=== PATIENT | female | born 1940 | race Caucasian/White ===

== ENCOUNTER → 2019-01-17 12:35 | Outpatient (CLI) | payer OTHER, SELFPAY ==
--- NOTE | 2019-01-17 | DI.MG.S_ITS ---
BILATERAL DIGITAL SCREENING MAMMOGRAM 3D/2D WITH CAD: 01/17/2019 CLINICAL: Routine screening. Comparison is made to exams dated: 06/05/2015 mammogram, 11/15/2012 mammogram - [facility], and 11/13/2011 mammogram - [facility]. There are scattered fibroglandular elements in both breasts. Current study was also evaluated with a Computer Aided Detection (CAD) system. There are mole markers on both breasts. No significant masses, calcifications, or other findings are seen in either breast. There has been no significant interval change. IMPRESSION: NEGATIVE There is no mammographic evidence of malignancy. A 1 year screening mammogram is recommended. This exam was interpreted at Station ID: [id number]. NOTE: For mammograms, a report in lay terms will be sent to the patient. Approximately 15% of breast malignancies will not be visualized mammographically. In the management of a palpable breast mass, a negative mammogram must not discourage biopsy of a clinically suspicious lesion. Electronically Signed By: Nasir baum/quan:01/17/2019 19:21:47 letter sent: Normal Exam ACR BI-RADS Category 1: Negative 3341F
== END ==
PROVIDERS: PCP Family Medicine; Visit Provider Family Medicine
DX: Z12.31 Encounter for screening mammogram for malignant neoplasm of breast (principal)
CPT/HCPCS: 77063; 77067

== ENCOUNTER → 2021-01-15 11:18 | Outpatient (CLI) | payer OTHER, SELFPAY ==
--- NOTE | 2021-01-15 11:21 | DI.MG.S_ITS ---
BILATERAL DIGITAL SCREENING MAMMOGRAM 3D/2D WITH CAD: 01/15/2021 CLINICAL: Routine screening. Comparison is made to exams dated: 01/17/2019 mammogram, 06/05/2015 mammogram, and 11/15/2012 mammogram - [facility]. There are scattered fibroglandular elements in both breasts. Current study was also evaluated with a Computer Aided Detection (CAD) system. There are mole markers on both breasts. No significant masses, calcifications, or other findings are seen in either breast. There has been no significant interval change. IMPRESSION: NEGATIVE There is no mammographic evidence of malignancy. A 1 year screening mammogram is recommended. This exam was interpreted at Station ID: [id number]. NOTE: For mammograms, a report in lay terms will be sent to the patient. Approximately 15% of breast malignancies will not be visualized mammographically. In the management of a palpable breast mass, a negative mammogram must not discourage biopsy of a clinically suspicious lesion. Electronically Signed By: Camilo Thomas acr/penrad:01/15/2021 11:46:53 letter sent: Normal Exam ACR BI-RADS Category 1: Negative 3341F
== END ==
PROVIDERS: PCP Family Medicine; Referring Provider Family Medicine; Visit Provider Family Medicine
DX: Z12.31 Encounter for screening mammogram for malignant neoplasm of breast (principal)
CPT/HCPCS: 77063; 77067

== ENCOUNTER → 2021-01-25 14:36 | Outpatient (CLI) | payer OTHER, SELFPAY | PROVIDERS: PCP Family Medicine; Referring Provider Family Medicine; Visit Provider Family Medicine | DX: M85.852 Other specified disorders of bone density and structure, left thigh (principal) | CPT/HCPCS: 77080 ==

== ENCOUNTER → 2021-11-12 15:54 | Outpatient (CLI) | payer OTHER, SELFPAY ==
--- NOTE | 2021-11-12 | DI.MRI.S_ITS ---
PROCEDURE: MR KNEE LT WO CON INDICATIONS: Sprain of unspecified site of left knee TECHNIQUE: Noncontrast sagittal PD fast spin echo and T2 fast spin echo with fat saturation, sagittal 3-D FLASH with fat saturation; coronal T1 spin echo and PD fast spin echo with fat saturation, and axial PD fast spin echo with fat saturation through the knee. COMPARISON: None. FINDINGS: Image quality: Excellent. Menisci: The medial and lateral menisci demonstrate normal morphology and internal signal. The meniscal root ligaments appear intact. Cruciate ligaments: The anterior cruciate ligament is intact. Thickened distal PCL at its tibial insertion is seen. No full-thickness PCL rupture. Medial structures: Low to moderate grade MCL sprain/partial-thickness tear is seen. The posterior oblique ligament, semimembranosus tendon insertions, oblique popliteal ligament, and meniscocapsular junction appear intact. Visualized portions of the pes anserinus tendons appear normal. No abnormal bursal fluid. Lateral structures: The lateral collateral ligament, long and short heads of the biceps femoris tendon appear intact. The popliteus tendon appears normal; the popliteofibular ligament appears intact. The posterosuperior and anteroinferior popliteomeniscal fascicles appear intact. The arcuate and fabellofibular ligaments appear intact, on either side of the lateral inferior geniculate artery. Iliotibial band appears normal. Anterior structures: Distal quadriceps tendinosis at its superior patellar insertion is seen. Patellar tendon is intact.. Patellar alignment is normal. No femoral trochlear dysplasia or ventral trochlear prominence. No edema in the infrapatellar fat pad. Bones and cartilage: There is marrow edema involving posterior aspect of medial tibial plateau at distal PCL insertion site with cortical disruption suggestive of acute avulsion injury involving distal PCL insertion. No other area of abnormal marrow signal is seen. [id number] tricompartmental osteoarthritis and chondromalacia is noted. Joint space: There is small to moderate joint effusion. No Robles's cyst. Normal appearing synovial plicae are incidentally noted. IMPRESSION: 1. Finding is suggestive of acute to subacute avulsion injury involving posterior aspect of medial tibial plateau at distal PCL insertion. Sprain/low-grade partial-thickness tear involving distal PCL without full-thickness PCL rupture. ACL is intact. 2. No other area of abnormal marrow signal. Aohm-dj-[id number] tricompartmental osteoarthritis and low-grade chondromalacia. Small to moderate amount of joint fluid, no gross loose body. 3. Low to moderate grade MCL sprain/partial-thickness tear. 4. Distal quadriceps tendinosis at its superior patellar insertion. 5. No evidence of focal meniscal tear. Dictated by: Mitch Pearson M.D. on 11/12/2021 at 17:11 Approved by: Mitch Pearson M.D. on 11/12/2021 at 17:17
== END ==
PROVIDERS: PCP Family Medicine; Referring Provider Family Medicine; Visit Provider Family Medicine
DX: S83.522A Sprain of posterior cruciate ligament of left knee, initial encounter (principal); S83.412A Sprain of medial collateral ligament of left knee, initial encounter; M17.12 Unilateral primary osteoarthritis, left knee; M94.262 Chondromalacia, left knee
CPT/HCPCS: 73721

== ENCOUNTER 2023-03-13 23:33 | Emergency (ER) | payer OTHER, SELFPAY ==
[2023-03-13 23:38] VITALS: BP 189/90; PULSE 96; RESP 18; TEMP 36.3; O2SAT 98
--- NOTE | 2023-03-14 00:06 | ED.SKABFB ---
HPI - Skin/Abscess/Foreign Bdy General Chief complaint: Skin/Abscess/Foreign Body Stated complaint: Cellilitus left leg Time Seen by Provider: 03/13/23 23:51 Source: patient Mode of arrival: Ambulatory Limitations: no limitations History of Present Illness HPI narrative: Patient is an 82-year-old female who is on antibiotics for cellulitis to the anterior portion of her left leg. She is been on this for 3 days. She states she feels like things that improve but this evening she thought that maybe the redness was worsening. No fevers. She was told that if the redness extends larger than what was prior that she does need to be re-evaluated. Related Data Allergies Allergy/AdvReac Type Severity Reaction Status Date / Time Sulfa (Sulfonamide Allergy Severe NAUSEA/VOMI Unverified 01/27/18 12:05 Antibiotics) TING [SULFA (SULFONAMIDE ANTIBIOTICS)] Review of Systems Constitutional Constitutional: Reports system reviewed and no additional complaints, except as documented Musculoskeletal Musculoskeletal: Reports system reviewed and no additional complaints, except as documented Integumentary/Breasts Skin/Breast: Reports system reviewed and no additional complaints, except as documented Neurologic Neurologic: Reports system reviewed and no additional complaints, except as documented Hematologic/Lymphatic On Anticoagulants: No Patient History Social History Smoking Status: Never smoker Smoking Status: Never smoker Substance Use Type: does not use Exam Initial Vital Signs Initial Vital Signs: Vital Signs Temperature 97.3 F L 03/13/23 23:38 Pulse Rate 96 H 03/13/23 23:38 Respiratory Rate 18 03/13/23 23:38 Blood Pressure 189/90 H 03/13/23 23:38 Pulse Oximetry 98 03/13/23 23:38 Oxygen Delivery Method Room Air 03/13/23 23:38 Const General: cooperative, comfortable and No ill appearing HENMT Head: normal to inspection and normocephalic Resp Effort & Inspection: normal respiratory effort Auscultation: clear to auscultation bilaterally Cardio Rate: regular rate Rhythm: regular rhythm GI Inspection: normal to inspection Skin Other: Patient does have redness on the anterior portion of her left torres. There is no abscess. No fluctuance noted. Neuro General: patient alert, patient awake and moves all extremities Extrem General: normal to inspection and capillary refill normal Psych Appearance: grossly normal and well kempt Course Vital Signs Vital signs: Vital Signs - 8 hr 03/13/23 23:38 Temperature 97.3 F L Pulse Rate 96 H Respiratory Rate 18 Blood Pressure 189/90 H Pulse Oximetry 98 Oxygen Delivery Method Room Air MDM - Skin/Abscess/Foreign Bdy MDM Narrative Medical decision making narrative: There is some redness in the anterior portion of the left torres. There is no indication today that she needs to switch her antibiotics. I did outline the redness with a marker. Advised that she continue to take the antibiotics and if over the next 12-24 hours her symptoms worsen that she should return to the emergency department at that point she may need to change her antibiotics. She is nontoxic appearing. She expressed understanding agreement the plan. Discharge Plan Departure Patient Disposition: Home Clinical Impression: Cellulitis Instructions: DI for Cellulitis -- Adult Activity Restrictions/Additional Instructions: Recommend that you continue to take all of your medications as directed to include the antibiotics. You can shower like normal. If the redness starts to extend outside of the lines that were drawn this evening you do need to return to the emergency department for further evaluation like we discussed. Referrals: Helen Gonzalez MD [Primary Care Provider] - Stand Alone Forms: Patient Portal/API
== END 2023-03-14 00:11 | disposition home or self-care (01) ==
PROVIDERS: Emergency Provider Emergency Medicine; Family Provider Family Medicine; PCP Family Medicine
DX: L03.116 Cellulitis of left lower limb (principal)
CPT/HCPCS: 99281

== ENCOUNTER → 2023-08-11 12:52 | Outpatient (ROUT) | payer OTHER, SELFPAY ==
[2023-08-11 13:09] LABS: Add Manual Diff / Slide Review NO; Basophils Absolute Auto 0 /uL (0-100); Basophils Percent Auto 0.3 % (0-2); Eosinophils Absolute Auto 100 /uL (0-450); Hematocrit 45.1 % (36-46); Hemoglobin 15.1 g/dL (12.0-16.0); Lymphocytes Absolute Auto 1700 /uL (1100-4500); Mean Corpuscular HGB Conc 33.5 % (30-36); Mean Corpuscular Hemoglobin 28.8 PG (26-34); Mean Corpuscular Volume 86.1 fL (80-100); Monocytes Absolute Auto 500 /uL (0-900); Monocytes Percent Auto 7.6 % (3-14); Neutrophils Absolute Auto 4400 /uL (1500-7000); Neutrophils Percent Auto 65.1 % (50-75); Platelet Count 272 X10^3/uL (150-400); Red Blood Cell Count 5.24 X10^6/uL (4.0-5.2); Red Cell Distribution Width 14.5 % (11.6-14.8); White Blood Cell Count 6.7 X10^3/uL (4.5-11.0)
[2023-08-11 13:28] LABS: Alanine Aminotransferase 21 IU/L (<35); Albumin 4.3 g/dL (3.5-5.0); Albumin Globulin Ratio 1.7 (1.0-2.8); Alkaline Phosphatase 103 U/L (38-126); Aspartate Aminotransferase 31 IU/L (14-36); BUN Creatinine Ratio 23.9 (6-22); Bilirubin Total 0.5 mg/dL (0.2-1.3); Blood Urea Nitrogen 17 mg/dL (7-17); Calcium 9.5 mg/dL (8.4-10.2); Carbon Dioxide 27 mmol/L (22-32); Chloride 101 mmol/L (98-107); Cholesterol 316 mg/dL (140-199); Estimated Glomerular Filt Rate > 60 mL/min (>60); Globulin 2.6 g/dL (1.7-4.1); Glucose 130 mg/dL (80-110); HDL Cholesterol 55 mg/dL (40-60); HEMOLYSIS < 15 (0-50); LDL Cholesterol Calculated 220 mg/dL (<100); Magnesium 2.2 mg/dL (1.6-2.3); Potassium 4.6 mmol/L (3.4-5.1); Sodium 136 mmol/L (137-145); Total Protein 6.9 g/dL (6.3-8.2); Triglycerides 207 mg/dL (35-150)
[2023-08-11 13:32] LABS: Hemoglobin A1C% w Est Avg Glu 6.6 % (4.0-6.0)
[2023-08-11 13:59] LABS: Thyroid Stimulating Hormone 1.91 uIU/mL (0.47-4.68)
[2023-08-11 14:34] LABS: Vitamin B12 254 pg/mL (239-931)
[2023-08-14 18:36] LABS: ANA Screen, IFA Positive (.)
== END ==
PROVIDERS: Family Provider Family Medicine; PCP Family Medicine; Visit Provider Family Medicine
DX: E88.810 Metabolic syndrome (principal); R00.2 Palpitations; L65.9 Nonscarring hair loss, unspecified; M85.80 Other specified disorders of bone density and structure, unspecified site; K90.41 Non-celiac gluten sensitivity; M79.7 Fibromyalgia; R03.0 Elevated blood-pressure reading, without diagnosis of hypertension
CPT/HCPCS: 80053; 80061; 82306; 82607; 82746; 83036; 83735; 84443; 85025; 86038

== ENCOUNTER → 2025-01-27 15:33 | Outpatient (CLI) | payer OTHER, SELFPAY ==
--- NOTE | 2025-01-27 15:36 | DI.RAD.S_ITS ---
PROCEDURE: FL BARIUM SWALLOW INDICATIONS: BARIUM SWALLOW TEST COMPARISON: None. FINDINGS: Function: Spontaneous tertiary esophageal contractions are present in the mid and distal thoracic esophagus. Spontaneous esophageal reflux is present to the level of the aortic arch in the standing and supine positions. There is normal transit of a calibrated barium tablet through the esophagus into the stomach. Morphology: Air-contrast images demonstrate normal mucosal morphology. Single contrast views show no esophageal strictures, extrinsic mass effects, or diverticula. Limited images of the stomach demonstrate normal appearance. IMPRESSION: 1. Spontaneous esophageal reflux to the level of the aortic arch in the standing and supine positions, with associated tertiary esophageal contractions. 2. No significant hiatal hernia. Dictated by: Krishna Rutledge M.D. on 01/27/2025 at 16:54 Approved by: Krishna Rutledge M.D. on 01/27/2025 at 16:55
== END ==
PROVIDERS: Family Provider Family Medicine; PCP Family Medicine; Referring Provider Family Medicine; Visit Provider Radiology Diagnostic Radiology
DX: K21.9 Gastro-esophageal reflux disease without esophagitis (principal); R13.10 Dysphagia, unspecified
CPT/HCPCS: 74220

== ENCOUNTER 2025-02-02 08:54 | Emergency (ER) | payer OTHER, SELFPAY ==
--- NOTE | 2025-02-02 08:55 | EKG_ITS ---
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
[2025-02-02 08:59] VITALS: RESP 57
[2025-02-02 09:00] VITALS: BP 206/94; PULSE 80; PULSE 90; RESP 18; RESP 20; TEMP 36.8; O2SAT 99; BMI 25.1
--- NOTE | 2025-02-02 09:00 | DI.RAD.S_ITS ---
PROCEDURE: XR CHEST 1V INDICATIONS: chest pain TECHNIQUE: One view of the chest was acquired. COMPARISON: None. FINDINGS AND IMPRESSION: No dense consolidation or pleural effusion on this single view study. Normal heart size. Aortic calcifications. Degenerative osseous changes. Possible bony structure projects over the left lower neck, either artifact or cervical rib. Dictated by: Izaiah Parnell M.D. on 02/02/2025 at 9:41 Approved by: Izaiah Parnell M.D. on 02/02/2025 at 9:43
--- NOTE | 2025-02-02 09:00 | ED_ITS ---
HPI - Chest Pain General Chief Complaint: Chest Pain Stated Complaint: possible Heart Attack Time Seen by Provider: 02/02/25 08:55 History of Present Illness HPI narrative: 84-year-old female without any significant past medical history presents to the emergency department from home for evaluation of chest burning. States that she has been having sensations of chest burning for the past several months, states that she has seen her primary care doctor for this is in the process of seeing a land surveying manager, states that she has an appointment with a land surveying manager at the end of February. She states that the symptoms have been intermittent and ongoing for so long that she wanted to come into the ED to make sure everything was ?okay she was told that her symptoms might be due to her esophagus but has not seen a GI doctor. She states that nothing is making the symptoms better or worse. Patient denies any other symptoms such as headache visual disturbances shortness of breath fever chills nausea vomiting abdominal pain or any other GI/ symptoms at this time. She is not on any blood thinners. Related Data Previous Rx's Medication Instructions Recorded famotidine 20 mg tablet (Pepcid) 20 mg PO DAILY 1 month #30 tabs 02/02/25 Allergies Allergy/AdvReac Type Severity Reaction Status Date / Time Sulfa (Sulfonamide Allergy Severe NAUSEA/VOMI Verified 02/02/25 09:16 Antibiotics) TING [SULFA (SULFONAMIDE ANTIBIOTICS)] Review of Systems Review of Systems Narrative: General: Denies fever, chills, weight loss HEENT: Denies headache, eye drainage, eye irritation, head trauma, sore throat, voice change Cardiovascular: Positive chest pain, denies palpitations, tachycardia Respiratory: Denies any shortness of breath, cough, wheeze, stridor GI/: Denies any abdominal pain, nausea, vomiting, diarrhea, bright red blood per rectum, melanotic stools, urinary frequency, urinary retention, dysuria, hematuria MSK: Denies any joint pain, muscle pains, swelling Skin: Denies any rashes, lesions, discoloration Neuro: Denies any headache, lightheadedness, dizziness, fainting, weakness Psych: Denies SI/HI Patient History Social History Smoking Status: Never smoker Exam Narrative Exam Narrative: General: Cooperative, well-developed, not in acute distress HEENT: Normocephalic, atraumatic, PERRLA, normal sclera, eyelids normal Neck: Active full range of motion, atraumatic Chest: Normal to inspection, negative crepitus, no overlying erythema ecchymosis Respiratory: Normal respiratory effort, not in acute respiratory distress, clear to auscultation bilaterally negative cough, wheeze, tachypnea, rhonchi, rales Cardiology: Regular rate rhythm negative gallop, murmur, rubs GI/: No tenderness to palpation, soft, non rigid, normal to inspection, exam deferred MSK: Full active range of motion in all 4 extremities, atraumatic, no tenderness to palpation of any bony prominences Skin: No rashes or lesions noted Neuro: Alert awake oriented x3, moves all 4 extremities spontaneously, cranial nerves intact, able to answer all questions appropriately follows commands appropriately Psych: Cooperative, negative suicidal or homicidal ideations Initial Vital Signs Initial Vital Signs: Vital Signs Respiratory Rate 57 H 02/02/25 08:59 Course Orders Ordered: ED Orders 02/02/25 08:55 EKG-12 Lead Stat 02/02/25 09:00 XR chest 1V Stat 02/02/25 09:13 Complete Blood Count AUTO DIFF Stat Comprehensive Metabolic Panel Stat Lipase Stat MAG [Magnesium] Stat Troponin & CK Cardiac Panel Stat Discontinued Medications Al Hydrox/Mg Hydrox/Simethicone (Mag Hydrox/Alum/Simeth 30 Ml Udc) 30 ml PO NOW ONE Stop: 02/02/25 09:01 Last Admin: 02/02/25 09:16 Dose: 30 ml Documented By: RB Aspirin (Aspirin 81 Mg Chew Tab) 324 mg PO NOW ONE Stop: 02/02/25 09:01 Last Admin: 02/02/25 09:16 Dose: 324 mg Documented By: RB Famotidine (Famotidine 20 Mg/2 Ml Vial) 20 mg IV NOW ONE Stop: 02/02/25 09:01 Last Admin: 02/02/25 09:16 Dose: 20 mg Documented By: RB Vital Signs Vital signs: Vital Signs - 8 hr 02/02/25 08:59 02/02/25 09:00 02/02/25 09:00 Temperature 98.2 F Pulse Rate 80 Respiratory Rate 57 H 18 Blood Pressure 206/94 H 206/94 H Pulse Oximetry 99 Oxygen Delivery Method Room Air 02/02/25 09:00 Temperature Pulse Rate 90 Respiratory Rate 20 Blood Pressure Pulse Oximetry Oxygen Delivery Method MDM - Chest Pain Differential Diagnosis Differential diagnosis: Likely other (ACS, pneumonia, electrolyte abnormality, GERD) Lab Data 02/02/25 09:13 02/02/25 09:13 Labs: Lab Results 02/02/25 Range/Units 09:13 WBC 9.4 (4.5-11.0) X10^3/uL RBC 5.13 (4.0-5.2) X10^6/uL Hgb 15.2 (12.0-16.0) g/dL Hct 44.3 (36-46) % MCV 86.4 (80-100) fL MCH 29.6 (26-34) PG MCHC 34.3 (30-36) % RDW 14.3 (11.6-14.8) % Plt Count 252 (150-400) X10^3/uL Neut % (Auto) 74.5 (50-75) % Lymph % (Auto) 16.7 L (25-40) % Hamilton % (Auto) 7.2 (3-14) % Eos % (Auto) 1.2 L (2-4) % Baso % (Auto) 0.4 (0-2) % Neut # (Auto) 7000 (4870-2526) /uL Lymph # (Auto) 1600 (9946-0358) /uL Hamilton # (Auto) 700 (0-900) /uL Eos # (Auto) 100 (0-450) /uL Baso # (Auto) 0 (0-100) /uL Sodium 139 (137-145) mmol/L Potassium 4.0 (3.4-5.1) mmol/L Chloride 104 (98-107) mmol/L Carbon Dioxide 27 (22-32) mmol/L BUN 20 H (7-17) mg/dL Creatinine 0.82 (0.52-1.04) mg/dL Estimated GFR > 60 (>60) mL/min BUN/Creatinine Ratio 24.4 H (6-22) Glucose 135 H (80-110) mg/dL Calcium 9.4 (8.4-10.2) mg/dL Magnesium 2.0 (1.6-2.3) mg/dL Total Bilirubin 0.7 (0.2-1.3) mg/dL AST 32 (14-36) IU/L ALT 22 (<35) IU/L Alkaline Phosphatase 77 (38-126) U/L Total Creatine Kinase 34 (30-135) U/L Troponin I < 0.012 (0.01-0.034) ng/mL Total Protein 7.1 (6.3-8.2) g/dL Albumin 4.4 (3.5-5.0) g/dL Globulin 2.7 (1.7-4.1) g/dL Albumin/Globulin Ratio 1.6 (1.0-2.8) Lipase 115 (23-300) U/L Imaging Data Chest x-ray: Radiologist's Impression: [address] [address] XRay Report Signed Patient: Kathe Szymanski MR#: [id number] : 1940 Acct:[id number] Age/Sex: 84 / F Date of Service: 02/02/25 Loc: ED Accession Number: [id number] Procedure: XR chest 1V Ordering Provider: Richi Espinal D.O. PROCEDURE: XR CHEST 1V INDICATIONS: chest pain TECHNIQUE: One view of the chest was acquired. COMPARISON: None. FINDINGS AND IMPRESSION: No dense consolidation or pleural effusion on this single view study. Normal heart size. Aortic calcifications. Degenerative osseous changes. Possible bony structure projects over the left lower neck, either artifact or cervical rib. ECG Data Interpretation: EKG interpreted ED physician sinus 77 beats per minute QTC [address] changes no STEMI MDM Narrative Medical decision making narrative: 84-year-old female no significant past medical history presenting for chest burning sensation, states it has been ongoing intermittent for the past several months, states that she is in the process of seeing a land surveying manager has not appointment at the end of February of 2025. She states that she has seen her primary care doctor multiple times for this has had normal EKGs and was told that it might be due to her esophagus, however she states that she does not take any medications for this. She states that given the persistent and intermittent symptoms wanted to be evaluated in the emergency department. Patient had lab work, chest x-ray, EKG performed here in the emergency department. Patient had Pepcid, Maalox and aspirin provided here in the emergency department. EKG was nonischemic in nature. Patient without any leukocytosis, Chem panel unremarkable, troponin negative, chest x-ray without any acute cardiopulmonary abnormality, patient had improved/completely resolved symptoms after administration of Pepcid, Maalox, patient with a heart score of 2. Patient will be discharged home with Pepcid for symptomatic control of her symptoms. Patient will be discharged home and instructed to follow up with her land surveying manager, as well as primary care doctor, she was given strict return precautions she verbalized understanding of this and agrees to being discharged home with outpatient follow up Discharge Plan Departure Patient Disposition: Home Clinical Impression: Chest pain Instructions: DI for Chest Pain Activity Restrictions/Additional Instructions: Please follow up with Cardiology and primary care Please read the discharge instructions sheet carefully and bring all papers to all doctor follow-up visits, as it may contain information that your doctor may want to see. Disease processes change and evolve, if your symptoms worsen or if you develop any new symptoms that are concerning to you please return for evaluation. Your evaluation today does not show any evidence of any life- threatening/serious illnesses requiring admission to the hospital or surgery. Please follow-up with your doctor for re-evaluation in approximately 1 day. Seek immediate medical attention for any worrisome symptoms. *If you do not have a primary care provider please contact the [facility] Resource line at [phone]. They will ask some questions about your medical history and help get you set up with a doctor in the community. Prescriptions: New famotidine [Pepcid] 20 mg tablet 20 mg PO DAILY 30 Days Qty: 30 0RF Referrals: Helen Gonzalez MD [Primary Care Provider] - Stand Alone Forms: Patient Portal/API/Survey
[2025-02-02] MEDS: FAMOTIDINE 20 MG/2 ML VIAL IV (09:16)
[2025-02-02] MEDS: ASPIRIN 81 MG CHEW TAB 324 MG PO (09:16)
[2025-02-02] MEDS: MAG HYDROX/ALUM/SIMETH 30 ML UDC PO (09:16)
[2025-02-02 09:19] LABS: Add Manual Diff / Slide Review NO; Basophils Absolute Auto 0 /uL (0-100); Basophils Percent Auto 0.4 % (0-2); Eosinophils Absolute Auto 100 /uL (0-450); Eosinophils Percent Auto 1.2 % (2-4); Hematocrit 44.3 % (36-46); Hemoglobin 15.2 g/dL (12.0-16.0); Lymphocytes Absolute Auto 1600 /uL (1100-4500); Lymphocytes Percent Auto 16.7 % (25-40); Mean Corpuscular HGB Conc 34.3 % (30-36); Mean Corpuscular Hemoglobin 29.6 PG (26-34); Mean Corpuscular Volume 86.4 fL (80-100); Monocytes Absolute Auto 700 /uL (0-900); Monocytes Percent Auto 7.2 % (3-14); Neutrophils Absolute Auto 7000 /uL (1500-7000); Neutrophils Percent Auto 74.5 % (50-75); Platelet Count 252 X10^3/uL (150-400); Red Blood Cell Count 5.13 X10^6/uL (4.0-5.2); Red Cell Distribution Width 14.3 % (11.6-14.8); White Blood Cell Count 9.4 X10^3/uL (4.5-11.0)
[2025-02-02 09:30] VITALS: PULSE 72; RESP 23; O2SAT 99
[2025-02-02 09:30] LABS: Alanine Aminotransferase 22 IU/L (<35); Albumin 4.4 g/dL (3.5-5.0); Albumin Globulin Ratio 1.6 (1.0-2.8); Alkaline Phosphatase 77 U/L (38-126); Aspartate Aminotransferase 32 IU/L (14-36); BUN Creatinine Ratio 24.4 (6-22); Bilirubin Total 0.7 mg/dL (0.2-1.3); Blood Urea Nitrogen 20 mg/dL (7-17); Calcium 9.4 mg/dL (8.4-10.2); Carbon Dioxide 27 mmol/L (22-32); Chloride 104 mmol/L (98-107); Creatine Kinase 34 U/L (30-135); Estimated Glomerular Filt Rate > 60 mL/min (>60); Globulin 2.7 g/dL (1.7-4.1); Glucose 135 mg/dL (80-110); HEMOLYSIS < 15 (0-50); Lipase 115 U/L (23-300); Sodium 139 mmol/L (137-145); Total Protein 7.1 g/dL (6.3-8.2)
[2025-02-02 09:31] VITALS: BP 151/67; PULSE 71; RESP 22; O2SAT 100
[2025-02-02 09:42] LABS: Troponin I < 0.012 ng/mL (0.01-0.034)
== END 2025-02-02 10:02 | disposition home or self-care (01) ==
PROVIDERS: Emergency Provider Student in an Organized Health Care Education/Training Program; Family Provider Family Medicine; PCP Family Medicine
DX: R07.9 Chest pain, unspecified (principal)
CPT/HCPCS: 36415; 71045; 80053; 82550; 83690; 83735; 84484; 85025; 93005; 93010; 96374; 99284

== ENCOUNTER 2025-02-03 09:43 | Emergency (ER) | payer OTHER, SELFPAY ==
[2025-02-03] VITALS (15 sets, daily range): BP systolic 133–194; BP diastolic 63–92; PULSE 70–93; RESP 12–30; TEMP 36.3; O2SAT 94–99; BMI 25.0
--- NOTE | 2025-02-03 09:46 | DI.RAD.S_ITS ---
PROCEDURE: XR CHEST 1V INDICATIONS: chest pain TECHNIQUE: One view of the chest was acquired. COMPARISON: [facility], CR, XR CHEST 1V, 02/02/2025, 9:11. FINDINGS: Surgical changes and devices: None. Lungs and pleura: Lungs are clear. No pleural effusions or pneumothorax. Mediastinum: Mildly tortuous thoracic aorta with aortic arch calcifications. Heart size is enlarged. Bones and chest wall: No suspicious bony lesions. Overlying soft tissues appear unremarkable. IMPRESSION: No acute cardiopulmonary pathology. Dictated by: Mitch Pearson M.D. on 02/03/2025 at 10:05 Approved by: Mitch Pearson M.D. on 02/03/2025 at 10:06
--- NOTE | 2025-02-03 09:58 | EKG_ITS ---
[address] [address] Test Date: 2025-02-03 Pat Name: Kathe Szymanski Department: [facility] Room: Gender: Female [employer] Hunter: NATASHA : 1940 Requested By: Order Number: [id number] Reading MD: Ej Farr MD Measurements Intervals [place] Rate: 75 P: 75 MN: 146 QRS: -1 QRSD: 88 T: 36 QT: 364 QTc: 406 Interpretive Statements Normal sinus rhythm with sinus arrhythmia Electronically Signed On 02-03-2025 10:46:08 PDT by Ej Farr MD
--- NOTE | 2025-02-03 10:10 | PC.NURSE ---
Pt transferred to [facility]. Appears in NAD. Denies pain at this time.
[2025-02-03 10:13] LABS: Add Manual Diff / Slide Review NO; Basophils Absolute Auto 0 /uL (0-100); Basophils Percent Auto 0.4 % (0-2); Eosinophils Absolute Auto 100 /uL (0-450); Eosinophils Percent Auto 0.8 % (2-4); Hematocrit 43.4 % (36-46); Hemoglobin 14.9 g/dL (12.0-16.0); Lymphocytes Absolute Auto 1000 /uL (1100-4500); Lymphocytes Percent Auto 9.5 % (25-40); Mean Corpuscular HGB Conc 34.3 % (30-36); Mean Corpuscular Hemoglobin 29.5 PG (26-34); Mean Corpuscular Volume 85.9 fL (80-100); Monocytes Absolute Auto 600 /uL (0-900); Monocytes Percent Auto 5.8 % (3-14); Neutrophils Absolute Auto 8400 /uL (1500-7000); Neutrophils Percent Auto 83.5 % (50-75); Platelet Count 241 X10^3/uL (150-400); Red Blood Cell Count 5.05 X10^6/uL (4.0-5.2); Red Cell Distribution Width 14.3 % (11.6-14.8); White Blood Cell Count 10.1 X10^3/uL (4.5-11.0)
--- NOTE | 2025-02-03 10:20 | ED_ITS ---
HPI - Chest Pain General Chief Complaint: Chest Pain Stated Complaint: Chest pain; EMS called but rec to come to ER Time Seen by Provider: 02/03/25 10:06 Source: patient Mode of arrival: Family Vehicle Limitations: no limitations History of Present Illness HPI narrative: Patient here with a real estate representative for complaints of right-sided chest pain radiating to the right neck and right arm. Patient seen here yesterday for the same. Did have relief with GI cocktail yesterday but not relieved today at home with it. Currently chest pain-free. Patient is scheduled for cardiology office visit in February. Also working on referral to GI by a primary care for possible stomach or esophagus problem. Patient does have history of diabetes. Patient has never had a cardiac workup in the past stress test echocardiogram. Related Data Previous Rx's Medication Instructions Recorded famotidine 20 mg tablet (Pepcid) 20 mg PO DAILY 1 month #30 tabs 02/02/25 Allergies Allergy/AdvReac Type Severity Reaction Status Date / Time Sulfa (Sulfonamide Allergy Severe NAUSEA/VOMI Verified 02/03/25 09:53 Antibiotics) TING [SULFA (SULFONAMIDE ANTIBIOTICS)] Review of Systems Review of Systems Narrative: GENERAL: Negative chills, fatigue, malaise, fever, sweats. HEENT: Negative sinus pain, ear pain, sore throat RESPIRATORY: Negative dyspnea, cough CARDIOVASCULAR: Positive chest pain, negative palpitations GASTROINTESTINAL: Negative vomiting, nausea, abdominal pain : Negative dysuria, frequency, hematuria MUSCULOSKELETAL: Negative muscle or bony pain SKIN: Negative rash, skin lesions NEUROLOGIC: Negative weakness, numbness ROS Unobtainable: All systems reviewed & are unremarkable except as noted in HPI and below Patient History Social History Smoking Status: Never smoker Smoking Status: Never smoker Exam Narrative Exam Narrative: GENERAL: in no distress, not toxic not dyspneic HEAD: Normocephalic. EYES: Pupils equal round ENT: Mucous membranes moist. NECK: Trachea midline. CARDIOVASCULAR: Regular rate and rhythm RESPIRATORY: Clear to auscultation. Breath sounds equal bilaterally. No wheezes, rales, or rhonchi. GASTROINTESTINAL: Abdomen soft, non-tender EXTREMITIES: No gross deformities. BACK: No flank tenderness. NEURO: AOx4. Clear speech SKIN: Warm and dry PSYCH: Not anxious, is cooperative Initial Vital Signs Initial Vital Signs: Vital Signs Temperature 97.4 F L 02/03/25 09:49 Pulse Rate 92 H 02/03/25 09:49 Respiratory Rate 14 02/03/25 09:49 Blood Pressure 179/85 H 02/03/25 09:49 Pulse Oximetry 98 02/03/25 09:49 Oxygen Delivery Method Room Air 02/03/25 09:49 Scores HEART Score Heart Score history: Moderately Suspicious Heart Score EKG: Normal Heart Score Age: > or = 65 years old Heart Score risk factors: 1-2 risk factors Heart Score troponin: < or = to normal limit Heart Score Total: 4 Course Orders Ordered: Discontinued Medications Aspirin (Aspirin 81 Mg Chew Tab) 324 mg PO NOW ONE Stop: 02/03/25 09:47 Last Admin: 02/03/25 09:56 Dose: Not Given Documented By: LISHA Atorvastatin Calcium (Atorvastatin 20 Mg Tablet) 40 mg PO NOW ONE Stop: 02/03/25 12:44 Last Admin: 02/03/25 13:30 Dose: 40 mg Documented By: Heparin Sodium (Porcine) (Heparin 5,000 Unit/Ml Vial) 4,000 unit 60 unit/kg (4000 unit) IV NOW ONE Stop: 02/03/25 12:20 Last Admin: 02/03/25 12:29 Dose: 4,000 unit Documented By: Heparin Sodium/Dextrose (Heparin Drip) 25,000 unit in 500 mls @ 16.874 mls/hr IV CONT SHRUTHI; Protocol Last Admin: 02/03/25 12:30 Dose: 12 units/kg/hr, 16.874 mls/hr Documented By: Co-signed By: LISHA Morphine Sulfate (Morphine 4 Mg/Ml Inj) 4 mg IV NOW ONE Stop: 02/03/25 13:42 Last Admin: 02/03/25 13:44 Dose: 4 mg Documented By: Nitroglycerin (Nitroglycerin Oint 1 Inch/Gm Oint...G.) 1 inch TOP NOW ONE Stop: 02/03/25 13:42 Last Admin: 02/03/25 13:45 Dose: 1 inch Documented By: Ondansetron HCl (Ondansetron 4 Mg/2 Ml Inj) 4 mg IV NOW ONE Stop: 02/03/25 13:42 Last Admin: 02/03/25 13:45 Dose: 4 mg Documented By: Vital Signs Vital signs: Vital Signs - 8 hr 02/03/25 09:49 02/03/25 10:00 02/03/25 10:01 Temperature 97.4 F L Pulse Rate 92 H 79 80 Respiratory Rate 14 19 20 Blood Pressure 179/85 H Pulse Oximetry 98 95 95 Oxygen Delivery Method Room Air 02/03/25 10:01 02/03/25 10:30 02/03/25 10:30 Temperature Pulse Rate 76 78 Respiratory Rate 12 16 Blood Pressure 157/72 H 148/67 H Pulse Oximetry 94 98 Oxygen Delivery Method Room Air 02/03/25 10:41 02/03/25 10:41 02/03/25 11:00 Temperature Pulse Rate 73 72 Respiratory Rate 12 17 Blood Pressure 144/63 H Pulse Oximetry 95 95 Oxygen Delivery Method Room Air 02/03/25 11:00 02/03/25 11:30 02/03/25 11:30 Temperature Pulse Rate 70 Respiratory Rate 15 Blood Pressure 138/64 133/63 Pulse Oximetry 96 Oxygen Delivery Method 02/03/25 12:00 02/03/25 12:00 02/03/25 12:30 Temperature Pulse Rate 70 83 Respiratory Rate 12 16 Blood Pressure 136/65 Pulse Oximetry 97 98 Oxygen Delivery Method 02/03/25 12:31 02/03/25 12:31 02/03/25 13:00 Temperature Pulse Rate 78 89 Respiratory Rate 16 16 Blood Pressure 177/78 H Pulse Oximetry 98 97 Oxygen Delivery Method 02/03/25 13:01 02/03/25 13:01 02/03/25 13:30 Temperature Pulse Rate 88 90 Respiratory Rate 21 30 H Blood Pressure 143/71 H Pulse Oximetry 97 99 Oxygen Delivery Method 02/03/25 13:31 02/03/25 13:31 Temperature Pulse Rate 93 H Respiratory Rate 28 H Blood Pressure 194/92 H Pulse Oximetry 99 Oxygen Delivery Method MDM - Chest Pain Lab Data 02/03/25 10:05 02/03/25 10:05 Labs: Lab Results 02/03/25 02/03/25 Range/Units 10:05 12:20 WBC 10.1 (4.5-11.0) X10^3/uL RBC 5.05 (4.0-5.2) X10^6/uL Hgb 14.9 (12.0-16.0) g/dL Hct 43.4 (36-46) % MCV 85.9 (80-100) fL MCH 29.5 (26-34) PG MCHC 34.3 (30-36) % RDW 14.3 (11.6-14.8) % Plt Count 241 (150-400) X10^3/uL Neut % (Auto) 83.5 H (50-75) % Lymph % (Auto) 9.5 L (25-40) % Baker % (Auto) 5.8 (3-14) % Eos % (Auto) 0.8 L (2-4) % Baso % (Auto) 0.4 (0-2) % Neut # (Auto) 8400 H (6689-7065) /uL Lymph # (Auto) 1000 L (4619-4851) /uL Baker # (Auto) 600 (0-900) /uL Eos # (Auto) 100 (0-450) /uL Baso # (Auto) 0 (0-100) /uL PT 12.0 (9.4-12.5) SECONDS INR 1.1 (0.9-1.3) APTT 36 (25.1-36.5) SECONDS Sodium 137 (137-145) mmol/L Potassium 4.2 (3.4-5.1) mmol/L Chloride 104 (98-107) mmol/L Carbon Dioxide 26 (22-32) mmol/L BUN 18 H (7-17) mg/dL Creatinine 0.79 (0.52-1.04) mg/dL Estimated GFR > 60 (>60) mL/min BUN/Creatinine Ratio 22.8 H (6-22) Glucose 183 H (80-110) mg/dL Calcium 9.4 (8.4-10.2) mg/dL Magnesium 2.0 (1.6-2.3) mg/dL Total Bilirubin 0.8 (0.2-1.3) mg/dL AST 32 (14-36) IU/L ALT 19 (<35) IU/L Alkaline Phosphatase 85 (38-126) U/L Total Creatine Kinase 38 43 (30-135) U/L Troponin I 0.081 H 0.199 H* (0.01-0.034) ng/mL NT-Pro-B Natriuret Pep 561 H (<450) pg/mL Total Protein 7.0 (6.3-8.2) g/dL Albumin 4.3 (3.5-5.0) g/dL Globulin 2.7 (1.7-4.1) g/dL Albumin/Globulin Ratio 1.6 (1.0-2.8) Lipase 96 (23-300) U/L Imaging Data Chest x-ray: Radiologist's Impression: [address] [address] XRay Report Signed Patient: Kathe Szymanski MR#: [id number] : 1940 Acct:[id number] Age/Sex: 84 / F Date of Service: 02/03/25 Loc: ED Accession Number: [id number] Procedure: XR chest 1V Ordering Provider: Venkatesh Walker MD PROCEDURE: XR CHEST 1V INDICATIONS: chest pain TECHNIQUE: One view of the chest was acquired. COMPARISON: [facility], , XR CHEST 1V, 02/02/2025, 9:11. FINDINGS: Surgical changes and devices: None. Lungs and pleura: Lungs are clear. No pleural effusions or pneumothorax. Mediastinum: Mildly tortuous thoracic aorta with aortic arch calcifications. Heart size is enlarged. Bones and chest wall: No suspicious bony lesions. Overlying soft tissues appear unremarkable. IMPRESSION: No acute cardiopulmonary pathology. Dictated by: Mitch Pearson M.D. on 02/03/2025 at 10:05 Approved by: Mitch Pearson M.D. on 02/03/2025 at 10:06 [facility] Narrative Medical decision making narrative: Patient here with a real estate representative for complaints of right-sided chest pain radiating to the right neck and right arm. Patient seen here yesterday for the same. Did have relief with GI cocktail yesterday but not relieved today at home with it. Currently chest pain-free. Patient is scheduled for cardiology office visit in February. Also working on referral to GI by a primary care for possible stomach or esophagus problem. Patient does have history of diabetes. Patient has never had a cardiac workup in the past stress test echocardiogram After history and exam, patient already had aspirin by EMS at home. CBC CMP troponin EKG chest x-ray, likely transfer, patient aware we do not have stress test capability this weekend. [facility] Medical records reviewed: ER visit here yesterday Differential considered: Includes but not limited to STEMI non-STEMI stable angina unstable angina Lab Test results independently reviewed as above. Pertinent findings: Hemoglobin 14.9 hematocrit 43.4 INR 1.1 BUN 18 creatinine 0.79 GFR greater than 60, troponin 0.081, repeat troponin 0.199 Independently reviewed EKG normal sinus rhythm rate [address] elevation or depression Imaging studies independently reviewed: Chest x-ray no acute finding Consultations: 12:44 p.m.. Spoke with Ashley babin hospitalist Dr. Pineda, she will accept patient. Re-evaluations: 12:22 p.m.. Updated patient and friend results. Will need transfer for non-STEMI. Currently chest pain-free. She does understand. May need heart catheterization. 1:30 p.m.. Patient has chest pain that came back. Repeat EKG has artifact with rate of 91. Morphine Zofran and nitro paste ordered. 2:00 p.m.. EMS is here to transfer patient. Patient is smiling and feeling much better. 1/10 pain. Discussion: Appropriate for transfer for higher level of care and stress test. This is patient's 2nd visit in 2 days for chest pain. Patient does agree for transfer and need for more urgent stress test. Heparin has been started. Diagnosis: Non-STEMI Critical Care Time Critical Care Time Attestation: Critical Care Time 35 minutes: Critical care time is separate from other billable procedures. This critical care time includes consultation with family and other consulting doctors, review of records, and interpretation of data from labs, EKGs, imaging, etc. Discharge Plan Departure Patient Disposition: Xfer Acute [facility] Clinical Impression: Non-STEMI (non-ST elevated myocardial infarction) Prescriptions: No Action famotidine [Pepcid] 20 mg tablet 20 mg PO DAILY 30 Days Qty: 30 0RF Referrals: Helen Gonzalez MD [Primary Care Provider] -
[2025-02-03 10:23] LABS: INR 1.1 (0.9-1.3)
[2025-02-03 10:25] LABS: PTT Partial Thromboplastin Tim 36 SECONDS (25.1-36.5)
[2025-02-03 10:26] LABS: Alanine Aminotransferase 19 IU/L (<35); Albumin 4.3 g/dL (3.5-5.0); Albumin Globulin Ratio 1.6 (1.0-2.8); Alkaline Phosphatase 85 U/L (38-126); Aspartate Aminotransferase 32 IU/L (14-36); BUN Creatinine Ratio 22.8 (6-22); Bilirubin Total 0.8 mg/dL (0.2-1.3); Blood Urea Nitrogen 18 mg/dL (7-17); Calcium 9.4 mg/dL (8.4-10.2); Carbon Dioxide 26 mmol/L (22-32); Chloride 104 mmol/L (98-107); Creatine Kinase 38 U/L (30-135); Estimated Glomerular Filt Rate > 60 mL/min (>60); Globulin 2.7 g/dL (1.7-4.1); Glucose 183 mg/dL (80-110); HEMOLYSIS < 15 (0-50); Lipase 96 U/L (23-300); Potassium 4.2 mmol/L (3.4-5.1); Sodium 137 mmol/L (137-145)
[2025-02-03 10:38] LABS: NT-proBNP (BNP-Adult 18+) 561 pg/mL (<450); Troponin I 0.081 ng/mL (0.01-0.034)
[2025-02-03] MEDS: HEPARIN 5,000 UNIT/ML VIAL 4000 UNIT IV (12:29)
[2025-02-03] MEDS: HEPARIN DRIP 25,000 UNIT/500 ML IV.SOLN 16.874 UNIT IV (12:30)
[2025-02-03 13:00] LABS: Creatine Kinase 43 U/L (30-135)
[2025-02-03] MEDS: ATORVASTATIN 20 MG TABLET 40 MG PO (13:30)
--- NOTE | 2025-02-03 13:35 | PC.NURSE ---
Pt reports chest pain. Dr Walker notiifed. EKG done.
--- NOTE | 2025-02-03 13:37 | EKG_ITS ---
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
--- NOTE | 2025-02-03 13:40 | PC.NURSE ---
[employer] Note: Transfer to started at 1116. Accepted by Dr. Boucher at 1244. [facility] ETA 1340. called and given ETA.
--- NOTE | 2025-02-03 13:41 | PC.NURSE ---
Pt reports that she is having a lot of substernal check pain with burning radiation to left arm.
[2025-02-03] MEDS: MORPHINE 4 MG/ML INJ IV (13:44)
[2025-02-03] MEDS: NITROGLYCERIN OINT 1 INCH/GM OINT...G. TOP (13:45)
[2025-02-03] MEDS: ONDANSETRON 4 MG/2 ML INJ IV (13:45)
[2025-02-03 13:50] LABS: Troponin I 0.199 ng/mL (0.01-0.034)
--- NOTE | 2025-02-03 13:58 | PC.NURSE ---
Reported to ambulance crew for transport to . Pt reports pain has decreased to 1 or 2 with no radiation to arm.
== END 2025-02-03 14:03 | disposition short-term general hospital (02) ==
PROVIDERS: Emergency Provider Emergency Medicine; Family Provider Family Medicine; PCP Family Medicine; Referring Provider Family Medicine
DX: I21.4 Non-ST elevation (NSTEMI) myocardial infarction (principal)
CPT/HCPCS: 36415; 71045; 80053; 82550; 83690; 83735; 83880; 84484; 85025; 85610; 85730; 93005; 93010; 96365; 96366; 96375; 99284; 99291; J1644; J2270; J2405

== ENCOUNTER → 2025-03-21 07:37 | Outpatient (CLI) | payer OTHER, SELFPAY ==
[2025-03-21 08:27] LABS: HDL Cholesterol 48 mg/dL (40-60); Triglycerides 141 mg/dL (35-150)
[2025-03-21 08:28] LABS: Cholesterol 150 mg/dL (140-199); LDL Cholesterol Calculated 74 mg/dL (<100)
== END ==
PROVIDERS: Family Provider Family Medicine; PCP Family Medicine; Referring Provider Internal Medicine; Visit Provider Internal Medicine
DX: E78.5 Hyperlipidemia, unspecified (principal)
CPT/HCPCS: 36415; 80061

== ENCOUNTER → 2025-05-18 12:30 | Outpatient (CLI) | payer OTHER, SELFPAY ==
--- NOTE | 2025-05-18 12:31 | DI.ECHO.S_ITS ---
[place] [facility]+ [facility] : : [address] : : [place] : : [id number] : : Phone: [phone] Echocardiogram Report + + :Name: DREAD ANDREWS Study Date: 05/18/2025 Height: 66 in : :[facility] ReadingLocation: Weight: 147 lb : : Gender: Female BSA: 1.8 m2 : :: 1940 Age: 84 yrs BP: 136/85 mmHg: :Reason For Study: HEART FAILURE : :Ordering Physician: MAYCO PEARSON Performed By: Filipe Johnson : :Referring: MAYCO PEARSON : + + Interpretation Summary 1. The left ventricular contractility is normal. Estimated ejection fraction is greater than 60% with no segmental wall motion abnormalities. No LVH. Normal diastolic function. 2. The right ventricular contractility is normal. 3. All cardiac chambers are of normal size. 4. Mild aortic insufficiency. 5. No obvious intracardiac shunts. 6. No obvious intracardiac masses nor thrombi. 7. No hemodynamically significant pericardial effusion. 8. Low right-sided filling pressures. Conclusion: Normal left ventricular systolic function with mild aortic insufficiency. Procedure: A two-dimensional transthoracic echocardiogram with color flow and Doppler was performed. The study quality was technically good. There is no prior echocardiogram noted for this patient. The patient was in normal sinus rhythm during the exam. Left Ventricle: The left ventricle is normal in size. There is normal left ventricular wall thickness. There is no ventricular septal defect visualized. The ejection fraction is estimated to be 60-65%. There are no focal wall motion abnormalities. Normal diastolic function. Right Ventricle: The right ventricle is normal in size and function. Atria: The left atrial size is normal. Right atrial size is normal. There is no Doppler evidence for an interatrial shunt. Mitral Valve: The mitral valve leaflets appear normal. There is no evidence of stenosis, fluttering, or prolapse. There is no mitral regurgitation noted. Aortic Valve: The aortic valve is trileaflet. The aortic valve opens well. There is mild aortic regurgitation. Tricuspid Valve: The tricuspid valve leaflets are thin and pliable. The right ventricular systolic pressure is estimated to be at least 31 mmHg based on an estimated right atrial pressure of 3 mm Hg. No tricuspid regurgitation. Pulmonic Valve: The pulmonic valve is not well seen, but is grossly normal. There is trace pulmonic regurgitation. Great Vessels: The aortic root is normal size. The dimensions of the ascending aorta are normal. The pulmonary artery is normal size. The IVC is of normal diameter and collapses greater than 50% with a sniff. This suggests a low right atrial pressure of 3 mm Hg. Pericardium/ Pleura There is no pericardial effusion. There is no pleural effusion. MMode/2D Measurements & Calculations LVIDd: 4.2 cm LVOT diam: 2.0 cm LVIDs: 3.1 cm Ao root diam: 3.3 cm FS: 27.0 % asc Aorta Diam: 3.1 cm EPSS: 0.49 cm IVSd: 0.91 cm LVPWd: 0.96 cm LV henson. diameter/BSA (cm/m^2): 2.4 LV sys. diameter/BSA (cm/m^2): 1.7 LA A2 area: 14.7 cm2 RA long axis: 4.1 cm LA A4 area: 13.2 cm2 RA area: 11.2 cm2 LA length (vol): 4.8 cm RA vol: 25.7 ml LA vol: 34.3 ml RA : 14.6 ml/m2 LA vol index: 19.5 ml/m2 IVC diam: 1.2 cm RVD1 (basal): 2.6 cm RVD2 (mid): 2.0 cm TAPSE: 1.9 cm Doppler Measurements & Calculations Ao V2 max: 111.1 cm/sec LVOT Max Nicholas: 70.3 cm/sec Ao V2 mean: 76.7 cm/sec LV V1 max P.0 mmHg Ao max P.9 mmHg LV V1 VTI: 14.7 cm Ao mean P.7 mmHg LEONEL(I,D): 2.0 cm2 Ao V2 VTI: 23.7 cm LEONEL(V,D): 2.1 cm2 sev ratio: 0.62 LEONEL indexed to BSA (cm^2/m^2): 1.2 AI P1/2t: 475.9 msec AI dec slope: 295.0 cm/sec2 MV E max nicholas: 42.0 cm/sec TR max nicholas: 264.9 cm/sec MV A max nicholas: 49.1 cm/sec TR max P.1 mmHg MV E/A: 0.85 PA V2 max: 81.4 cm/sec Med Peak E' Nicholas: 5.2 cm/sec PA V2 mean: 61.5 cm/sec E/E' med: 8.1 PA mean P.6 mmHg Lat Peak E' Nicholas: 7.8 cm/sec PA pr(Accel): 53.3 mmHg E/E' lat: 5.4 E/e' average: 6.8 MV dec time: 0.31 sec SV(LVOT): 48.0 ml Reading Physician:TERRY
== END ==
LOC: ECHO 12:30
PROVIDERS: Family Provider Family Medicine; PCP Family Medicine; Referring Provider Internal Medicine; Visit Provider Internal Medicine
DX: I35.1 Nonrheumatic aortic (valve) insufficiency (principal); I50.22 Chronic systolic (congestive) heart failure
CPT/HCPCS: 93306

== ENCOUNTER 2025-06-01 09:45 | Outpatient (RCR) | payer OTHER, SELFPAY ==
--- NOTE | 2025-05-23 13:25 | PT.OPPOC ---
Physical, Occupational & Speech Therapy At [facility] Current Diagnoses Benign paroxysmal vertigo, bilateral (05/23/25) Unsteadiness on feet (05/23/25) Visit Care Team Role Provider Type Helen Gonzalez MD Attending Provider Physician Family Provider Primary Care Provider Referring Provider Specialty: Family Practice Address: [address] [place] [address], [facility] Email: Plan Of Care PT OP: Balance, Vestibular, Neuro Start: 05/23/25 10:33 Freq: Status: Active Protocol: Document 05/23/25 09:45 DCW (Rec: 05/23/25 10:44 DCW [id number]) Out-Patient Physical Therapy Visit Information Visit Information Visit Type Initial Evaluation Visit Start Time 09:45 Visit Stop Time 10:25 Visit Number 1 Number of ENGINEERING TECHNICAL WRITER Visits 0 Evaluation Information Evaluation Date 05/23/25 Current Condition History of Current Condition Onset Date 2-3 month history Current Complaints Unsteadiness, occasional position-dependent vertigo History of Current Pt is an 84 year old female complaining of a 2-3 month Condition history of both spontaneous and motion-induced vertigo/ imbalance. Began when working with cardiac rehab, was walking on a treadmill and became dizzy. Was seen by her PCP, and reports she had some positive positional testing. Pt reports the imbalance is largely constant when up walking around or turning quickly. Occasional positional vertigo typically occurs when rolling left in bed. 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 Pt denies recent hearing changes, diplopia , dysarthria, discoordination, or decreased mentation/ consciousness. Pt reports symptoms are waxing/waning in nature. Pt denies hx of HTN, head trauma, seizure, migraines, back/neck problems, CVA, anxiety/panic disorders, depression, or excessive smoking or drinking . Has history of three cardiac stent placements, diabetes, fibromyalgia, and macular degeneration. Treatment Goals Patient/Caregiver Improve balance issues Goals OP-PT Subjective Patient Comments Patient Comments I'm just so unsteady. Patient Reported Worse Progress Patient Questionnaires Dizziness Handicap Inventory DHI Score 72% Vestibular Assessment Auditory Tests Mitchell Test Lateralizes left Rinne Test Negative Air Conduction Equal Results Visual Testing Smooth Pursuits WNL Horizontal Smooth Pursuits WNL Vertical Saccades Horizontal WNL Saccades Vertical WNL Heave Test Positive Bilateral Thrust Head Positive Bilateral Positional Testing Deya-Hallpike Negative Left,Negative Right Rolling Test Negative Left,Negative Right Vestibular Function Tests CTSIB Position 1 30 seconds - Moderate sway CTSIB Position 2 Fall Reaction CTSIB Position 3 Fall Reaction CTSIB Position 4 30 seconds - Severe sway CTSIB Position 5 Fall Reaction CTSIB Position 6 Fall Reaction Physical Therapy Assessment Rehab Potential Rehabilitation Good Potential Evaluation Complexity Number of Personal 3 or More Factors/ Comorbidities Number of Body 4 or More Systems Impaired Clinical Unstable Presentation at Evaluation Impairments Impairments Activity Tolerance,Balance,Functional Activities, Functional Mobility,Vestibular Goals One Impairment Pt demonstrates fall reaction in CTSIB positions II, III, V, and Information Systems Supervisor Goal (LTG) Pt to demonstrate ability to hold CTSIB positions II and III for at least 30 seconds in order to demonstrate improved static balance LTG Duration 08/21/25 Assessment Summary Assessment Pt presents with a history and subjective complaints fairly consistent with likely BPPV, however positional testing negative today. Due to the fact that positional testing has a higher likelihood of false negatives, this may not specifically rule out possible BPPV. PT additionally demonstrates fairly poor balance, with a fall reaction in CTSIB positions II, III, V, and . PT will likely benefit from skilled therapeutic intervention focusing on static and dynamic balance, as well as repeated positional testing and CRM as indicated. Physical Therapy Plan Frequency and Duration Frequency of 2x/Week Treatment Plan of Care Start 05/23/25 Date Plan of Care End 08/21/25 Date Therapeutic Interventions Therapeutic Balance Training,Canalithic Repositioning,Home Exercise Interventions Program,Manual Therapy,Neuromuscular Re-education, Patient/Caregiver Education,Self-Care/Home Management, Soft Tissue Mobilization,Therapeutic Activities, Therapeutic Exercises,Vestibular Rehabilitation Next Visit Focus/Plan Next Note Type Treatment Note Next Visit Plan Positional testing, CRM as indicated, balance training Plan of Care Dates Plan of Care Start Date 05/23/25 Plan of Care End Date 08/21/25 Electronically Signed by: Moisés Gay, PT 05/23/25 [id number] If you are in agreement with this Plan of Care, please return a signed and dated copy. I have reviewed this Plan of Care and certify that the skilled therapy services above are required to meet the patient?s needs. Physician Signature Date Printed Name and Credentials Clinical Instructor Signature Printed Name and Credentials
--- NOTE | 2025-05-30 10:30 | PT.OTN ---
Current Diagnoses Benign paroxysmal vertigo, bilateral (05/30/25) Unsteadiness on feet (05/30/25) Physical Therapy Treatment Note PT OP: Balance, Vestibular, Neuro Start: 05/23/25 10:33 Freq: Status: Active Protocol: Document 05/30/25 09:45 DCW (Rec: 05/30/25 10:30 DCW [id number]) Out-Patient Physical Therapy Visit Information Visit Information Visit Type Treatment Note Visit Start Time 09:45 Visit Stop Time 10:30 Visit Number 2 Number of PHARMACY BILLING ADJUDICATOR Visits 0 Progress Note Due 06/22/25 Evaluation Information Evaluation Date 05/23/25 OP-PT Subjective Patient Comments Patient Comments I'm doing alright. Vestibular Assessment Positional Testing Deya-Hallpike Negative Left,Negative Right Rolling Test Negative Left,Negative Right Manual Therapy Treatment Other Other Manual Positional testing Treatments Neuro Re-Education Treatment Balance Activities SLS Details SLS Equipment @ rail Hurdles Details Hurdles Equipment @ rail Comments Forward, Side-stepping Tandem Details Tandem Stance Equipment @ rail Foam Details X1, EO/EC Equipment @ rail Dynamic Gait Details Hallway walking Comments Head turns (horizontal, vertical) Physical Therapy Assessment Impairments Impairments Activity Tolerance,Balance,Functional Activities, Functional Mobility,Vestibular Goals One Impairment Pt demonstrates fall reaction in CTSIB positions II, III, V, and Usp Goal (LTG) Pt to demonstrate ability to hold CTSIB positions II and III for at least 30 seconds in order to demonstrate improved static balance LTG Duration 08/21/25 Assessment Summary Assessment Positional testing was again negative today, so focus was mainly on balance challenges. Pt demonstrated good ability to perform, however was enough of a challenge that she really had to focus and work at it. Physical Therapy Plan Frequency and Duration Frequency of 2x/Week Treatment Plan of Care Start 05/23/25 Date Plan of Care End 08/21/25 Date Therapeutic Interventions Therapeutic Balance Training,Canalithic Repositioning,Home Exercise Interventions Program,Manual Therapy,Neuromuscular Re-education, Patient/Caregiver Education,Self-Care/Home Management, Soft Tissue Mobilization,Therapeutic Activities, Therapeutic Exercises,Vestibular Rehabilitation Next Visit Focus/Plan Next Note Type Treatment Note Next Visit Plan Positional testing, CRM as indicated, balance training
--- NOTE | 2025-05-30 10:31 | PT.OTN ---
Current Diagnoses Benign paroxysmal vertigo, bilateral (05/30/25) Unsteadiness on feet (05/30/25) Physical Therapy Treatment Note PT OP: Balance, Vestibular, Neuro Start: 05/23/25 10:33 Freq: Status: Active Protocol: Document 05/30/25 09:45 DCW (Rec: 05/30/25 10:30 DCW [id number]) Out-Patient Physical Therapy Visit Information Visit Information Visit Type Treatment Note Visit Start Time 09:45 Visit Stop Time 10:30 Visit Number 2 Number of FISHER OYSTER Visits 0 Progress Note Due 06/22/25 Evaluation Information Evaluation Date 05/23/25 OP-PT Subjective Patient Comments Patient Comments I'm doing alright. Vestibular Assessment Positional Testing Deya-Hallpike Negative Left,Negative Right Rolling Test Negative Left,Negative Right Manual Therapy Treatment Other Other Manual Positional testing Treatments Neuro Re-Education Treatment Balance Activities SLS Details SLS Equipment @ rail Hurdles Details Hurdles Equipment @ rail Comments Forward, Side-stepping Tandem Details Tandem Stance Equipment @ rail Foam Details X1, EO/EC Equipment @ rail Dynamic Gait Details Hallway walking Comments Head turns (horizontal, vertical) Physical Therapy Assessment Impairments Impairments Activity Tolerance,Balance,Functional Activities, Functional Mobility,Vestibular Goals One Impairment Pt demonstrates fall reaction in CTSIB positions II, III, V, and Assisted Goal (LTG) Pt to demonstrate ability to hold CTSIB positions II and III for at least 30 seconds in order to demonstrate improved static balance LTG Duration 08/21/25 Assessment Summary Assessment Positional testing was again negative today, so focus was mainly on balance challenges. Pt demonstrated good ability to perform, however was enough of a challenge that she really had to focus and work at it. Physical Therapy Plan Frequency and Duration Frequency of 2x/Week Treatment Plan of Care Start 05/23/25 Date Plan of Care End 08/21/25 Date Therapeutic Interventions Therapeutic Balance Training,Canalithic Repositioning,Home Exercise Interventions Program,Manual Therapy,Neuromuscular Re-education, Patient/Caregiver Education,Self-Care/Home Management, Soft Tissue Mobilization,Therapeutic Activities, Therapeutic Exercises,Vestibular Rehabilitation Next Visit Focus/Plan Next Note Type Treatment Note Next Visit Plan Positional testing, CRM as indicated, balance training
--- NOTE | 2025-06-01 10:25 | PT.OTN ---
Current Diagnoses Benign paroxysmal vertigo, bilateral (06/01/25) Unsteadiness on feet (06/01/25) Physical Therapy Treatment Note PT OP: Balance, Vestibular, Neuro Start: 05/23/25 10:33 Freq: Status: Active Protocol: Document 06/01/25 09:45 DCW (Rec: 06/01/25 10:25 DCW [id number]) Out-Patient Physical Therapy Visit Information Visit Information Visit Type Treatment Note Visit Note Early release due to overlapping appointment times Visit Start Time 09:45 Visit Stop Time 10:15 Visit Number 3 Number of INSTRUCTOR PRIVATE Visits 0 Progress Note Due 06/22/25 Evaluation Information Evaluation Date 05/23/25 OP-PT Subjective Patient Comments Patient Comments Pt denies any further vertigo, admits she has a very busy day. Vestibular Assessment Positional Testing Deya-Hallpike Negative Left,Negative Right Rolling Test Negative Left,Negative Right Gym Equipment Shuttle Balance Red Details WBOS, Staggered Neuro Re-Education Treatment Balance Activities SLS Details SLS Equipment // bars Hurdles Details Hurdles/Foam Equipment // bars Comments Forward, Tandem, Side-stepping Tandem Details Tandem Stance Equipment // bars Physical Therapy Assessment Impairments Impairments Activity Tolerance,Balance,Functional Activities, Functional Mobility,Vestibular Goals One Impairment Pt demonstrates fall reaction in CTSIB positions II, III, V, and Shuttle Car Operator Goal (LTG) Pt to demonstrate ability to hold CTSIB positions II and III for at least 30 seconds in order to demonstrate improved static balance LTG Duration 08/21/25 Assessment Summary Assessment Positional testing negative again today, will plan to skip positional testing going forward unless pt complains of return of symptoms. Pt did well with added activities today. did end early so pt was able to get to her next scheduled appointment. Physical Therapy Plan Frequency and Duration Frequency of 2x/Week Treatment Plan of Care Start 05/23/25 Date Plan of Care End 08/21/25 Date Therapeutic Interventions Therapeutic Balance Training,Canalithic Repositioning,Home Exercise Interventions Program,Manual Therapy,Neuromuscular Re-education, Patient/Caregiver Education,Self-Care/Home Management, Soft Tissue Mobilization,Therapeutic Activities, Therapeutic Exercises,Vestibular Rehabilitation Next Visit Focus/Plan Next Note Type Treatment Note Next Visit Plan Positional testing, CRM as indicated, balance training
--- NOTE | 2025-08-08 16:21 | PT.OPDS ---
Current Diagnoses Benign paroxysmal vertigo, bilateral (06/01/25) Unsteadiness on feet (06/01/25) Visit Care Team Role Provider Type Helen Gonzalez MD Attending Provider Physician Family Provider Primary Care Provider Referring Provider Specialty: [facility] Address: [address] [place] [address], [facility] Email: Visit Number Visit Number 3 Discharge Summary PT OP: Balance, Vestibular, Neuro Start: 05/23/25 10:33 Freq: Status: Active Protocol: Document 08/08/25 16:20 DCW (Rec: 08/08/25 16:21 DCW [id number]) Physical Therapy Assessment Assessment Summary Assessment Pt has currently not been seen in more than two months, has no follow-up visits scheduled, pt will be discharged from skilled therapy at this time. Physical Therapy Plan Discharge Physical Therapy Discharge Reasons No Longer Attending PT
== END 2025-08-09 09:54 | disposition home or self-care (01) ==
LOC: PHYS 09:45
PROVIDERS: Family Provider Family Medicine; PCP Family Medicine; Referring Provider Family Medicine; Visit Provider Family Medicine
DX: H81.13 Benign paroxysmal vertigo, bilateral (principal); R26.81 Unsteadiness on feet
CPT/HCPCS: 97112; 97140; 97163

== ENCOUNTER 2025-07-06 10:15 | Outpatient (RCR) | payer OTHER, SELFPAY | END 2025-07-06 12:15 | LOC: CAR 10:15 | PROVIDERS: Family Provider Family Medicine; PCP Family Medicine; Visit Provider Internal Medicine Cardiovascular Disease | DX: I21.4 Non-ST elevation (NSTEMI) myocardial infarction (principal); I25.10 Atherosclerotic heart disease of native coronary artery without angina pectoris; H81.13 Benign paroxysmal vertigo, bilateral; R26.81 Unsteadiness on feet | CPT/HCPCS: 93798; 97112 ==